=== PATIENT | female | born 1965 | race Caucasian/White ===

== ENCOUNTER 2023-12-18 05:18 | Day surgery (SDC) | payer MEDICAID ==
[2023-12-18] VITALS (12 sets, daily range): BP systolic 98–998; BP diastolic 48–87; PULSE 54–74; TEMP 96.7–97.9
[~2023-12-18] VITALS: Ht 162.6 cm; Wt 97.2 kg
[~2023-12-18 05:18] MED LIST: ASPI325T6 PO; ASPIRIN E.C. 8181 MG PO; CEPHALEXIN500 M1 PO; GLUCOPHAGE XR500 M1 PO; MOBIC15 MG PO; MULTIVITAMIN200 MCG PO; ROXICODONE 55 MG/TAB PO
[2023-12-18] MEDS ORDERED: PRINIVIL20 MG PO (05:57)
[2023-12-18] MEDS ORDERED: AMITRIPTYLINE H25 M1 PO (05:57)
[2023-12-18] MEDS ORDERED: SYNTHROID0.05 MG/TA PO (05:58)
[2023-12-18] MEDS ORDERED: MAG-OX 400400 MG/TAB PO (05:58)
[2023-12-18] MEDS ORDERED: LR 1,000 ML IV SCH (06:00)
[2023-12-18] MEDS ORDERED: RIBOFLAVIN100 MG PO (06:02)
[2023-12-18] MEDS ORDERED: VITAMIN D31000 IU PO (06:04)
[2023-12-18] MEDS ORDERED: Lidocaine PF 2% (20 MG/ML) 5 ML VIAL ONE (06:22)
[2023-12-18] MEDS ORDERED: Midazolam 2 MG/2 ML VIAL ONE (06:23)
[2023-12-18] MEDS ORDERED: fentaNYL 50 MCG/ML 5 ML VIAL ONE (06:23)
[2023-12-18] MEDS ORDERED: Tranexamic Acid 1,000 MG/10 ML VIAL ONE ×2 (06:23→09:36)
--- NOTE | 2023-12-18 06:27 | NUR ---
ADMITTED TO ROOM 8 AMBULATORY AND IS ALERT AND ORIENTED X3. VOICED UNDERSTANDING OF SURGERIES AND CONSENT SIGNED. ORIENTED TO ROOM. VSS WNL AND NO ABNORMAL FINDINGS ON ASSESS. FRIEND IN ROOM. CALL LIGHT IN REACH.
[2023-12-18] MEDS ORDERED: Magnes Hydrox (MOM) 80 MG/ML 30 ML CUP PO PRN (07:15)
[2023-12-18] MEDS ORDERED: Acetaminophen 500 MG TAB PO PRN (07:15)
[2023-12-18] MEDS ORDERED: Mag/Al Hydrox/Simeth Susp 30 ML CUP PO PRN (07:15)
[2023-12-18] MEDS ORDERED: NS 1,000 ML IV SCH (07:15)
[2023-12-18] MEDS ORDERED: Naloxone 0.4 MG/ML VIAL IV PRN (07:15)
[2023-12-18] MEDS ORDERED: Morphine 4 MG/ML VIAL IV PRN (07:15)
[2023-12-18] MEDS ORDERED: Ondansetron 4 MG/2 ML VIAL IV PRN ×2 (07:15→08:30)
[2023-12-18] MEDS ORDERED: Bisacodyl 5 MG TAB PO PRN (07:15)
[2023-12-18] MEDS ORDERED: Acetaminophen 500 MG TAB PO SCH (07:15)
[2023-12-18] MEDS ORDERED: oxyCODONE 5 MG TAB PO PRN (07:15)
[2023-12-18] MEDS ORDERED: Morphine 4 MG/ML VIAL SQ ONE (08:08)
[2023-12-18] MEDS ORDERED: Ketorolac 30 MG/ML VIAL IM ONE (08:08)
[2023-12-18] MEDS ORDERED: Thrombin Human (Recombinant) 5,000 UNITS VIAL TP ONE (08:08)
[2023-12-18] MEDS ORDERED: fentaNYL 50 MCG/ML 1 ML SYRINGE/VIAL [PACU/SDC ONLY] IV PRN (08:30)
[2023-12-18] MEDS ORDERED: HYDROmorphone 1 MG/1 ML SYRINGE [PACU/SDC ONLY] IV PRN (08:30)
[2023-12-18] MEDS ORDERED: fentaNYL 50 MCG/ML 2 ML VIAL ONE (08:55)
[2023-12-18] MEDS ORDERED: Celecoxib 200 MG CAP PO SCH (09:00)
[2023-12-18] MEDS ORDERED: Ascorbic Acid 500 MG TAB PO SCH (09:00)
[2023-12-18] MEDS ORDERED: Magnes Hydrox (MOM) 80 MG/ML 30 ML CUP PO SCH (09:00)
[2023-12-18] MEDS ORDERED: Sennosides/Docusate 8.6-50 MG TAB PO SCH (09:00)
[2023-12-18] MEDS ORDERED: HYDROmorphone 2 MG/1 ML VIAL ONE (10:18)
--- NOTE | 2023-12-18 11:30 | NUR ---
PATIENT ADMITTED TO 328, ALERT AND DROWSY. 2L NC. SET UP VITAL INTERVALS. VSS. HEMOVAC DRAIN INTACT. NO COMPLAINTS AT THIS TIME. R LOWER EXTREMITY ELEVATED ON PILLOW, SCDS IN PLACE, L HAND GALLO WRAPPED. HEAD TO TOE ASSESSMENT COMPLETE, SUPPORT PERSON AT BEDSIDE. BED IN LOWEST POSITION, CALL LIGHT WITHIN REACH.
[2023-12-18] MEDS ORDERED: ceFAZolin 2 G in Water For Injection,Sterile 20 ML IV SCH (14:00)
--- NOTE | 2023-12-18 14:04 | NUR ---
SW met with patient and her friend to complete initial assessment for discharge planning. Patient verified that she lives in [place] with her adopted 12 year old grandson Warren. Patient lists her daughter Deanna ([phone]) and son Jake ([phone]) as DPOA. Patient sees Dr. Oneil Keith as her PCP and uses [facility]. Patient reports to have a walker, cane, shower chair and grab bars for DME. Patient states that she went to [facility] for OP therapy after her first knee surgery in March of this year and plans to do the same for this recovery. Referral will be sent to [facility]. Discharge plan: Home with OP therapy
[2023-12-18] MEDS ORDERED: NS 1,000 ML IV ONE (15:15)
--- NOTE | 2023-12-18 20:30 | NUR ---
Patient resting in bed. Rates her pain at 7/10, pain meds given. Assissted patient to bedside commode and back to bed. Needs met. Assessment complete. IV in right hand infusing without complications. Dressing to right knee and left hand CDI. Call light and personal items in reach. Bed in low position and bed alarm on.
[2023-12-18] MEDS ORDERED: Amitriptyline 25 MG TAB PO SCH (21:00)
[2023-12-19] VITALS (7 sets, daily range): BP systolic 101–121; BP diastolic 66–75; PULSE 59–67; TEMP 97.8–98.2
--- NOTE | 2023-12-19 08:46 | NUR ---
PT UP TO RECLINER WITH THERAPY. EATING AND DRINKING WITH NO NAUSEA OR VOMITING. DRESSING TO RIGHT KNEE CDI WITH HEMOVAC INPLACE. GAUZE AND GALLO TO LEFT TRIGGER RELEASE. PT AMBULATING WITH THERAPY WITH WALKER AND GAIT BELT. PT IS A/O X4. PAIN CONTROLLED WITH PO PAIN MEDS.
--- NOTE | 2023-12-19 10:27 | NUR ---
fruit and vegetable factory worker contacted [facility] rehab center ([facility]) and scheduled patient's PT for December 25 at 11 am. SW will send orders once patient is ready for discharge. SW notified nursing unit manager of appointment time and date. Discharge plan: Home with OP PT- [facility]
--- NOTE | 2023-12-19 13:40 | NUR ---
Initial visit; Patient thanked [employer] Dipper for looking in on her though she declined [facility].
[2023-12-19] MEDS ORDERED: ASPIRIN E.C. 8181 MG PO (14:43)
[2023-12-19] MEDS ORDERED: CEPHALEXIN500 M1 PO (14:44)
[2023-12-19] MEDS ORDERED: ASPIRIN 81M81 MG/TA2 PO (14:44)
[2023-12-19] MEDS ORDERED: NORCO 325 MG-51 TAB PO (14:45)
[2023-12-19] MEDS ORDERED: ULTRAM 50MG TAB50 MG PO (14:45)
--- NOTE | 2023-12-19 15:26 | NUR ---
fiber glass worker faxed OP PT orders to [facility]. Discharge plan: Home with OP PT- [facility]
--- NOTE | 2023-12-19 16:40 | NUR ---
DISCHARGE INSTRUCTIONS REVIEWED WITH PT AND FRIEND. QUESTIONS SOLICITED AND ANSWERED. PT LEFT UNIT PER WHEEL CHAIR WITH STAFF.
== END 2023-12-19 16:42 | disposition home or self-care (01) ==
LOC: SDCO 05:18 → SURG 11:30 → SDCO 12-19 16:42
DX: M17.11 Unilateral primary osteoarthritis, right knee (principal); G56.02 Carpal tunnel syndrome, left upper limb; E66.9 Obesity, unspecified; I10 Essential (primary) hypertension; E03.9 Hypothyroidism, unspecified; G47.00 Insomnia, unspecified; Z79.890 Hormone replacement therapy; Z79.899 Other long term (current) drug therapy; Z79.84 Long term (current) use of oral hypoglycemic drugs; Z79.82 Long term (current) use of aspirin
CPT/HCPCS: OP; A9284; C1713; C1763; C1776; J0665; J0688; J0690; J1170; J1580; J1885; J2250; J2270; J2405; J2704; J2765; J2795; J3010; J7030; J7120

== ENCOUNTER → 2024-01-03 | Outpatient (CLI) | payer MEDICAID ==
[~2024-01-03] MED LIST changes: +AMITRIPTYLINE H25 M1 PO; +ASPIRIN 81M81 MG/TA2 PO; +MAG-OX 400400 MG/TAB PO; +NORCO 325 MG-51 TAB PO; +PRINIVIL20 MG PO; +RIBOFLAVIN100 MG PO; +SYNTHROID0.05 MG/TA PO; +ULTRAM 50MG TAB50 MG PO; +VITAMIN D31000 IU PO
== END ==
LOC: COL.RAD 15:07
DX: I82.401 Acute embolism and thrombosis of unspecified deep veins of right lower extremity (principal)